=== PATIENT | male | born 1985 | race Caucasian/White ===

== ENCOUNTER 2020-07-02 14:27 | Emergency (ER) | payer MEDICAID ==
[~2020-07-02] VITALS: Ht 188 cm; Wt 79.5 kg
[2020-07-02 14:30] VITALS: BP 102/63
== END 2020-07-02 14:57 | disposition home or self-care (01) ==
LOC: ER 14:30
DX: Z02.89 Encounter for other administrative examinations (principal); F12.90 Cannabis use, unspecified, uncomplicated
CPT/HCPCS: 99281